=== PATIENT | female | born 1940 | race Caucasian/White ===

== ENCOUNTER 2017-06-24 05:40 | Day surgery (SDC) | payer BC, OTHER ==
[2017-06-24] MEDS ORDERED: PROPARACAINE 0.5% OPHT DROP 15 ML BOTTLE ONE (05:59)
[2017-06-24] MEDS ORDERED: CIPROFLOXACIN 0.3% OPHT DROP 2.5 ML BOTTLE ONE (05:59)
[2017-06-24] MEDS ORDERED: CYCLOPENTOLATE 1% OPHT DROP 2 ML BOTTLE ONE (06:00)
[2017-06-24] MEDS ORDERED: PHENYLEPHRINE 2.5% OPHT DROP 2 ML BOTTLE ONE (06:01)
[2017-06-24] MEDS ORDERED: TROPICAMIDE 1% OPHT DROP 3 ML BOTTLE ONE (06:02)
[2017-06-24] MEDS ORDERED: TETRACAINE HCL 0.5% OPHT DROP 2 ML BOTTLE ONE ×2 (06:25→06:26)
[2017-06-24] MEDS ORDERED: ACETYLCHOLINE CHLORIDE 1% OPHT 1 EA KIT ONE (06:26)
[2017-06-24] MEDS ORDERED: BALANCED SALT IRRIG SOLN COMB2 15 ML IRRIG.SOLN ONE (06:26)
[2017-06-24] MEDS ORDERED: LIDOCAINE HCL-MPF 1% 5 ML VIAL ONE (06:26)
[2017-06-24] MEDS ORDERED: HYALURONATE SODIUM 8.5 MG/0.85 ML DISP.SYRIN ONE (06:27)
[2017-06-24] MEDS ORDERED: FLURBIPROFEN 0.03% OPHT DROP 2.5 ML BOTTLE ONE (06:53)
[2017-06-24] MEDS ORDERED: BALANCED SALT IRRIG SOLN COMB1 500 ML, VANCOMYCIN FOR BSS PLUS 10 MG, GENTAMICIN SULFAT... IO ONE ×4 (07:00)
[2017-06-24] MEDS ORDERED: NORMAL SALINE 0.5 ML, VANCOMYCIN FOR BSS PLUS 5 MG MC ONE ×2 (07:00)
[2017-06-24] MEDS ORDERED: FENTANYL CITRATE 100 MCG/2 ML AMPUL ONE (07:02)
[2017-06-24] MEDS ORDERED: MIDAZOLAM HCL 2 MG/2 ML VIAL ONE (07:02)
== END 2017-06-24 09:30 | disposition home or self-care (01) ==
LOC: DS 05:40
PROVIDERS: ATTEND Ophthalmology
DX: H26.9 Unspecified cataract (principal); D64.9 Anemia, unspecified; M19.90 Unspecified osteoarthritis, unspecified site; E03.9 Hypothyroidism, unspecified; J45.909 Unspecified asthma, uncomplicated
CPT/HCPCS: A4663; J0171; J1580; J2250; J3010; J3370; J3490; J7120; J7321; V2632

== ENCOUNTER 2017-07-22 11:36 | Day surgery (SDC) | payer BC, OTHER | END 2017-07-22 15:10 | disposition home or self-care (01) | LOC: DS 11:36 | PROVIDERS: ATTEND Ophthalmology | DX: H26.9 Unspecified cataract (principal); Z98.890 Other specified postprocedural states; K21.9 Gastro-esophageal reflux disease without esophagitis; M19.90 Unspecified osteoarthritis, unspecified site; E03.9 Hypothyroidism, unspecified; J45.909 Unspecified asthma, uncomplicated; D64.9 Anemia, unspecified; Z79.899 Other long term (current) drug therapy | CPT/HCPCS: 66984; A4663; J0171; J1580; J2250; J2405; J3010; J3370 ×2; J3490; J7120; J7321; V2632 ==